=== PATIENT | male | born 1935 | race Caucasian/White ===

== ENCOUNTER 2017-12-31 20:38 | Inpatient (IN) | payer MEDICARE, BC ==
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
[2017-12-31] MEDS ORDERED: Albuterol/Ipratropium NEB.SOL* Albuterol 2.5 MG/Ipratropium 0.5 MG 3 ML INH ONE (21:15)
[2017-12-31] MEDS ORDERED: Albuterol 2.5 MG/3 ML NEB.SOL* (0.083%) INH ONE (21:16)
[2017-12-31 22:36] LABS: EGFR Non-African American 34.2 (>60)
[2017-12-31] MEDS ORDERED: Iodixanol* (CONTRAST) 320 MG/ML 100 ML SDV IV ONE (22:46)
[2017-12-31] MEDS ORDERED: NS 0.9% 1000 ML* 1,000 ML IV ONE (22:49)
[2017-12-31 23:29] LABS: ABS Neutrophils 5.2 10^3/ul (1.5-7.7); Hematocrit 33 % (42-52); Hemoglobin 11.4 g/dl (14.0-18.0); Mean Corpuscular HGB Conc 35 g/dl (31-36); Mean Corpuscular Hemoglobin 35 pg (27-31); Mean Corpuscular Volume 100 fL (80-94); Red Blood Count 3.31 10^6/ul (4.00-5.40); Red Cell Distribution Width 15 % (10.5-15); White Blood Count 7.8 10^3/ul (3.5-10.8)
[2017-12-31] MEDS ORDERED: Levofloxacin 750 MG IVPREMIX(* 750 MG/150 ML BAG IVPB ONE (23:30)
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
[2018-01-01 00:17] LABS: ABS Basophils 0 10^3/ul (0-0.2); ABS Eosinophils 0 10^3/ul (0-0.6); ABS Lymphocytes 1.8 10^3/ul (1.0-4.8); ABS Monocytes 0.8 10^3/ul (0-0.8); ABS Nucleated RBC 0 10^3/ul; Eosinophil % 0.3 % (0-6); Lymphocyte % 23.4 % (25-47); Mean Platelet Volume 7.8 um3 (7.4-10.4); Nucleated Red Blood Cells % 0.1; Platelet Count 94 10^3/ul (150-450)
[2018-01-01] MEDS ORDERED: Heparin VIAL(*) 5000 UNITS/ML VIAL (FIVE THOUSAND) IV PRN (00:34)
[2018-01-01] MEDS ORDERED: Acetaminophen TAB* 325 MG PO PRN (02:07)
[2018-01-01] MEDS: oxyCODONE TAB* 5 MG TAB PO PRN ×5 (02:40→22:04)
[2018-01-01] MEDS: Heparin DRIP 25,000 UNITS(*) 25,000 UNITS/500 ML BAG IV SCH (03:04)
[2018-01-01] MEDS: Levothyroxine TAB* 100 MCG TAB PO SCH (05:25)
[2018-01-01 06:16] LABS: Hematocrit 34 % (42-52); Hemoglobin 11.7 g/dl (14.0-18.0); Mean Corpuscular HGB Conc 34 g/dl (31-36); Mean Corpuscular Hemoglobin 35 pg (27-31); Mean Corpuscular Volume 102 fL (80-94); Mean Platelet Volume 8.6 um3 (7.4-10.4); Platelet Count 103 10^3/ul (150-450); Red Blood Count 3.34 10^6/ul (4.00-5.40); Red Cell Distribution Width 15 % (10.5-15); White Blood Count 8.3 10^3/ul (3.5-10.8)
[2018-01-01 06:42] LABS: ABS Basophils 0 10^3/ul (0-0.2); ABS Neutrophils 6.6 10^3/ul (1.5-7.7); Monocytes % 4 % (0-7)
--- NOTE | 2018-01-01 08:02 | RAD ---
Indication: RIGHT-sided chest pain, shortness of breath, cough. COPD. Comparison: December 31, 2017 CT. Technique: Upright AP 2135 hours Report: Elevated lung volumes and both diffuse moderate prominence of the interstitial markings and patchy rarefaction of the mid to upper lung zone interstitial markings. Bilateral apical pleural-parenchymal scarring. No focal pulmonary lesion, compelling alveolar consolidation, pleural effusion, pneumothorax. Upper normal heart size. Unremarkable central pulmonary vasculature and mediastinal contours. IMPRESSION: #. Stigmata of obstructive lung disease. No acute pulmonary or cardiac process evident. R0
[2018-01-01] MEDS: Mometasone/Formoter 200/5 MDI INH SCH ×2 (08:05→20:24)
[2018-01-01] MEDS: Tiotropium CAP.INH* CAP.INH/18 MCG (USE ORDER SET !) INH SCH (08:06)
--- NOTE | 2018-01-01 08:23 | RAD ---
Indication: Pulmonary embolus Duplex Doppler sonography of the deep venous system of both lower extremities was performed. The right proximal common femoral vein, proximal greater saphenous vein and proximal femoral vein are partially compressible. The left common femoral vein, proximal greater saphenous vein and proximal femoral vein are patent and compressible. Bilaterally the mid and distal femoral vein, popliteal vein, posterior tibial vein and peroneal veins are patent and compressible. IMPRESSION: There is partial compressibility of the right common femoral vein, proximal greater saphenous vein and proximal femoral vein suggestive of sequela from prior thrombus.
[2018-01-01] MEDS ORDERED: Spiriva Inhaler DEVICE* 1 EACH DEVICE INH ONE (09:00)
[2018-01-01] MEDS: Finasteride TAB* 5 MG PO SCH (09:55)
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
[2018-01-01] MEDS: Omeprazole CAP* 20 MG PO SCH (09:57)
[2018-01-01] MEDS: Atorvastatin* 20 MG TAB PO SCH (09:57)
[2018-01-01] MEDS: Allopurinol TAB* 100 MG PO SCH (09:57)
[2018-01-01] MEDS: Metoprolol Tartrate TAB* 25 MG PO SCH (09:58)
--- NOTE | 2018-01-01 13:03 | ECHO ---
Patient: NELY GRANT [facility] Rec#: [id number] : 1935 Date: 01/01/2018 Age: 82y Height: 170 cm / 66.9 in Weight: 86.2 kg / 190.0 lbs Sex: M BSA: 2 Room#: [facility] Admit Date#: 12/31/2017 Type: Inpatient Referring: Bettye Landin NP, Ines Reading: Solitario Andres MD Founder And Ceo: Jessica Meadows RN RDCS CC: Shantelle De Guzman MD Transthoracic Echocardiogram Indication: Pulmonary embolism BP: 140/56 HR: 83 Rhythm: NSR with PVCs Findings History: HTN, hypothyroidism, COPD, MILDRED, kidney cancer with right nephrectomy. Technical Comments: The study quality is fair. The study is technically limited due to patient body habitus. The study is technically limited due to the patient's history of COPD. Left Ventricle: The left ventricular chamber size is normal. Septal wall hypertrophy is observed. Global left ventricular wall motion and contractility are within normal limits. There is normal left ventricular systolic function. The estimated ejection fraction is 60-65%. There is no consistent Doppler evidence of clinically significant diastolic dysfunction. Left Atrium: The left atrial chamber size is normal. Right Ventricle: The right ventricle is slightly dilated. The right ventricular global systolic function is low normal. Right Atrium: The right atrium is slightly dilated. Aortic Valve: The aortic valve leaflets are mildly thickened. There is no evidence of aortic regurgitation. There is no evidence of aortic stenosis. Mitral Valve: The mitral valve leaflets are mildly thickened. There is no evidence of mitral regurgitation. There is no evidence of mitral stenosis. Tricuspid Valve: The tricuspid valve leaflets are normal. There is trace tricuspid regurgitation. Unable to estimate the right ventricular systolic pressure. There is no tricuspid stenosis. Pulmonic Valve: The pulmonic valve appears normal. There is no evidence of pulmonic regurgitation. There is no pulmonic stenosis. Pericardium: There is no significant pericardial effusion. A pericardial fat pad is visualized. Aorta: There is mild dilatation of the ascending aorta. The aortic arch is not well visualized. The aortic root is normal in size. Pulmonary Artery: The main pulmonary artery is not well visualized. Venous: The venous system is not well visualized. The inferior vena cava is not visualized. Summary: There was not any prior study for comparison. Conclusions Global left ventricular wall motion and contractility are within normal limits. There is normal left ventricular systolic function. The estimated ejection fraction is 60-65%. There is no evidence of aortic stenosis. There is no evidence of mitral regurgitation. There is trace tricuspid regurgitation. Unable to estimate the right ventricular systolic pressure. There is no significant pericardial effusion. Measurements Name Value Normal Range RVIDd (AP) 2D 3.6 cm (0.9 - 2.6) RVDdMajor (2D) 3.4 cm (2.2 - 4.4) RAd ISD 4CH 5.1 cm (3.4 - 4.9) RA (A4C)W 3.5 cm (2.9 - 4.6) IVSd (2D) 1.2 cm (0.6 - 1) LVPWd (2D) 1 cm (0.6 - 1) LVIDd (2D) 3.6 cm (3.6 - 5.4) Aortic Annulus 2.1 cm (1.4 - 2.6) Ao root diameter (2D) 3.2 cm (2.1 - 3.5) Ascending Ao 3.5 cm (2.1 - 3.4) LA dimension (AP) 2D 3.4 cm (2.3 - 3.8) LAd ISD 4CH 5.2 cm (2.9 - 5.3) LA ISD 4CH W 3.9 cm (2.5 - 4.5) Name Value Normal Range LA ESV BP (A/L) index 20 ml/m2 - Name Value Normal Range MV E-wave Vmax 0.49 m/sec - MV deceleration time 180 msec - MV A-wave Vmax 0.95 m/sec - MV E:A ratio 0.5 ratio - LV septal e' Vmax 0.07 m/sec - LV lateral e' Vmax 0.09 m/sec - LV E:e' septal ratio 7 ratio - LV E:e' lateral ratio 5.4 ratio - Name Value Normal Range AV Vmax 1.4 m/sec - AV VTI 24.3 cm - AV peak gradient 8 mmHg - AV mean gradient 5 mmHg - LVOT Vmax 1.2 m/sec - LVOT VTI 22.1 cm - LVOT peak gradient 6 mmHg - LVOT mean gradient 3 mmHg - Name Value Normal Range PV Vmax 0.85 m/sec -
[2018-01-01 16:59] LABS: Hematocrit 33 % (42-52); Hemoglobin 11.4 g/dl (14.0-18.0); Mean Corpuscular HGB Conc 34 g/dl (31-36); Mean Corpuscular Hemoglobin 34 pg (27-31); Mean Corpuscular Volume 101 fL (80-94); Red Blood Count 3.32 10^6/ul (4.00-5.40); Red Cell Distribution Width 15 % (10.5-15); White Blood Count 7.6 10^3/ul (3.5-10.8)
[2018-01-01] MEDS ORDERED: Warfarin TAB(*) 5 MG PO SCH (17:00)
[2018-01-01 17:11] LABS: EGFR Non-African American 44.7 (>60)
[2018-01-01 17:40] LABS: ABS Basophils 0 10^3/ul (0-0.2); ABS Eosinophils 0 10^3/ul (0-0.6); ABS Lymphocytes 0.9 10^3/ul (1.0-4.8); ABS Monocytes 0.7 10^3/ul (0-0.8); ABS Nucleated RBC 0 10^3/ul; Eosinophil % 0.1 % (0-6); Lymphocyte % 12.3 % (25-47); Mean Platelet Volume 7.7 um3 (7.4-10.4); Nucleated Red Blood Cells % 0; Platelet Count 96 10^3/ul (150-450)
--- NOTE | 2018-01-01 17:42 | PN ---
Subjective Date of Service: 01/01/18 Interval History: Feeling good after oxycodone. His son is here. He was having pain in the right mid-clavicular line with deep breaths. Thinks breathing is much better than it was yesterday but not back to normal. He has not walked around yet. No bleeding on the heparin drip. No nausea, vomiting, headaches. Objective Active Medications: Acetaminophen (Tylenol Tab*) 650 mg PO Q4H PRN PRN Reason: FEVER/PAIN Last Admin: 01/01/18 02:20 Dose: 650 mg Allopurinol (Zyloprim Tab*) 200 mg PO DAILY [facility] Last Admin: 01/01/18 09:57 Dose: 200 mg Atorvastatin Calcium (Lipitor*) 20 mg PO DAILY [facility] Last Admin: 01/01/18 09:57 Dose: 20 mg Finasteride (Proscar Tab*) 5 mg PO DAILY [facility] Last Admin: 01/01/18 09:55 Dose: 5 mg Heparin Sodium (Porcine) (Heparin Vial(*)) 0 units IV .FOR BOLUSES PRN PRN Reason: HEPARIN DRIP BOLUSES Last Admin: 01/01/18 03:03 Dose: 6,450 units Heparin Sodium/Dextrose (Heparin Drip 25,000 Units(*)) 25,000 units in 500 mls @ 0 mls/hr IV PER RATE [facility]; Protocol Last Admin: 01/01/18 03:04 Dose: 31 mls/hr Lactated Ringer's (Lactated Ringers 1000 Ml Bag*) 1,000 mls @ 100 mls/hr IV PER RATE [facility] Last Admin: 01/01/18 14:47 Dose: 100 mls/hr Levothyroxine Sodium (Synthroid Tab*) 100 mcg PO 0600 [facility] Last Admin: 01/01/18 05:25 Dose: 100 mcg Metoprolol Tartrate (Lopressor Tab*) 12.5 mg PO DAILY [facility] Last Admin: 01/01/18 09:58 Dose: 12.5 mg Mometasone Furoate/Formoterol Fumar (Dulera 200/5 Mdi*) 2 puff INH BID [facility] Last Admin: 01/01/18 08:05 Dose: 2 puff Omeprazole (Prilosec Cap*) 20 mg PO DAILY [facility] Last Admin: 01/01/18 09:57 Dose: Not Given Oxycodone HCl (Roxycodone Tab*) 5 mg PO Q4H PRN PRN Reason: PAIN - SEVERE Last Admin: 01/01/18 12:34 Dose: 5 mg Tiotropium Cactus (Spiriva Cap.Inh*) 1 cap INH DAILY [facility] Last Admin: 01/01/18 08:06 Dose: 1 cap Warfarin Sodium (Coumadin Tab(*)) 5 mg PO DAILY@1700 [facility]; Protocol Vital Signs - 8 hr 01/01/18 01/01/18 01/01/18 10:03 11:26 12:34 Temperature 98.4 F Pulse Rate 96 Respiratory 20 22 18 Rate Blood Pressure 125/77 (mmHg) O2 Sat by Pulse 95 Oximetry 01/01/18 14:27 Temperature Pulse Rate Respiratory 18 Rate Blood Pressure (mmHg) O2 Sat by Pulse Oximetry Oxygen Devices in Use Now: Nasal Cannula Appearance: alert, no distress Eyes: No Scleral Icterus Ears/Nose/Mouth/Throat: NL Teeth, Lips, Gums Neck: NL Appearance and Movements; NL JVP Respiratory: Symmetrical Chest Expansion and Respiratory Effort, Clear to Auscultation Cardiovascular: NL Sounds; No Murmurs; No JVD, RRR Abdominal: NL Sounds; No Tenderness; No Distention, - - obese, he does not think it is bigger than usual Lymphatic: No Cervical Adenopathy Extremities: No Edema Skin: No Rash or Ulcers Neurological: Alert and Oriented x 3 Result Diagrams: 01/01/18 16:43 01/01/18 16:43 Assess/Plan/Problems-Billing Assessment: 82 year old man with history of prostate cancer (being followed in [place], reportedly PSA was stable this spring), renal cell ca s/p nephrectomy ( reportedly in remission, also being followed at [place]), who travels in an most of the year who presented with shortness of breath and was found to have a PE. - Patient Problems (1) Pulmonary embolism Current Visit: Yes Status: Acute Code(s): I26.99 - OTHER PULMONARY EMBOLISM WITHOUT ACUTE COR PULMONALE SNOMED Code(s): 24948535 Comment: certainly may be related to immobilization from RV trips, but he is also out of date on age-appropriate cancer screening (overdue for a colonoscopy) , and has history of prostate ca and renal cell ca. it is reassuring that he has not had any melena, weight loss, night sweats, etc, but malignancy should remain on the differential. will get records from his oncologist to confirm that neither cancers are thought to be active will check a PSA tomorrow to compare to his PSA in the spring continue heparin drip and start warfarin for bridge I discussed anticoagulation with him and his son at length. He should be maintained on warfarin given his renal insufficiency and histoyr of nephrectomy. This will pose a challenge since he is on the road 7 months out of the year; will discuss options with case management. (2) History of prostate cancer Current Visit: Yes Status: Acute Code(s): Z85.46 - PERSONAL HISTORY OF MALIGNANT NEOPLASM OF PROSTATE SNOMED Code(s): 018799519 Comment: check psa tomorrow and get records (3) History of renal cell carcinoma Current Visit: Yes Status: Acute Code(s): Z85.528 - PERSONAL HISTORY OF OTHER MALIGNANT NEOPLASM OF KIDNEY SNOMED Code(s): 996129112 Comment: s/p nephrectomy reportedly in remission
[2018-01-02] MEDS: Levothyroxine TAB* 100 MCG TAB PO SCH (05:24)
[2018-01-02 06:46] LABS: ABS Basophils 0 10^3/ul (0-0.2); ABS Eosinophils 0 10^3/ul (0-0.6); ABS Monocytes 0.6 10^3/ul (0-0.8); ABS Nucleated RBC 0 10^3/ul; Eosinophil % 0.4 % (0-6); Hematocrit 29 % (42-52); Hemoglobin 10.1 g/dl (14.0-18.0); Lymphocyte % 15.5 % (25-47); Mean Corpuscular HGB Conc 35 g/dl (31-36); Mean Corpuscular Hemoglobin 34 pg (27-31); Mean Corpuscular Volume 99 fL (80-94); Mean Platelet Volume 7.2 um3 (7.4-10.4); Nucleated Red Blood Cells % 0; Platelet Count 85 10^3/ul (150-450); Red Blood Count 2.94 10^6/ul (4.00-5.40); Red Cell Distribution Width 15 % (10.5-15); White Blood Count 6.7 10^3/ul (3.5-10.8)
[2018-01-02 06:47] LABS: EGFR Non-African American 45.4 (>60)
[2018-01-02 06:57] LABS: INR 1.21 (0.77-1.02)
[2018-01-02] MEDS ORDERED: Polyethylene Glycol 3350* 17 GM PACKET PO PRN (07:52)
[2018-01-02] MEDS: Mometasone/Formoter 200/5 MDI INH SCH ×2 (08:22→20:21)
[2018-01-02] MEDS: Tiotropium CAP.INH* CAP.INH/18 MCG (USE ORDER SET !) INH SCH (08:22)
[2018-01-02] MEDS: Atorvastatin* 20 MG TAB PO SCH (09:10)
[2018-01-02] MEDS: Allopurinol TAB* 100 MG PO SCH (09:11)
[2018-01-02] MEDS: Omeprazole CAP* 20 MG PO SCH (09:14)
[2018-01-02] MEDS: Metoprolol Tartrate TAB* 25 MG PO SCH (09:17)
[2018-01-02] MEDS: oxyCODONE TAB* 5 MG TAB PO PRN (09:17)
[2018-01-02] MEDS: Finasteride TAB* 5 MG PO SCH (09:17)
[2018-01-02] MEDS ORDERED: oxyCODONE TAB* 5 MG TAB PO PRN (10:47)
--- NOTE | 2018-01-02 10:49 | PN ---
Subjective Date of Service: 01/02/18 Interval History: Feeling about the same today. He still feels short of breath with movements but had no overnight events. He still has pain when he takes a deep breath. He has walked to the commode but no further. Objective Active Medications: Acetaminophen (Tylenol Tab*) 650 mg PO Q4H PRN PRN Reason: FEVER/PAIN Last Admin: 01/01/18 02:20 Dose: 650 mg Allopurinol (Zyloprim Tab*) 200 mg PO DAILY [facility] Last Admin: 01/02/18 09:11 Dose: 200 mg Atorvastatin Calcium (Lipitor*) 20 mg PO DAILY [facility] Last Admin: 01/02/18 09:10 Dose: 20 mg Finasteride (Proscar Tab*) 5 mg PO DAILY [facility] Last Admin: 01/02/18 09:17 Dose: 5 mg Heparin Sodium (Porcine) (Heparin Vial(*)) 0 units IV .FOR BOLUSES PRN PRN Reason: HEPARIN DRIP BOLUSES Last Admin: 01/01/18 03:03 Dose: 6,450 units Heparin Sodium/Dextrose (Heparin Drip 25,000 Units(*)) 25,000 units in 500 mls @ 0 mls/hr IV PER RATE [facility]; Protocol Last Admin: 01/02/18 00:00 Dose: 26 mls/hr Lactated Ringer's (Lactated Ringers 1000 Ml Bag*) 1,000 mls @ 100 mls/hr IV PER RATE [facility] Last Admin: 01/02/18 01:09 Dose: 100 mls/hr Levothyroxine Sodium (Synthroid Tab*) 100 mcg PO 0600 [facility] Last Admin: 01/02/18 05:24 Dose: 100 mcg Metoprolol Tartrate (Lopressor Tab*) 12.5 mg PO DAILY [facility] Last Admin: 01/02/18 09:17 Dose: 12.5 mg Mometasone Furoate/Formoterol Fumar (Dulera 200/5 Mdi*) 2 puff INH BID [facility] Last Admin: 01/02/18 08:22 Dose: 2 puff Omeprazole (Prilosec Cap*) 20 mg PO DAILY [facility] Last Admin: 01/02/18 09:14 Dose: 20 mg Oxycodone HCl (Roxycodone Tab*) 5 mg PO Q4H PRN PRN Reason: PAIN - SEVERE Last Admin: 01/02/18 09:17 Dose: 5 mg Polyethylene Glycol/Electrolytes (Miralax*) 17 gm PO DAILY PRN PRN Reason: CONSTIPATION Last Admin: 01/02/18 09:08 Dose: 17 gm Tiotropium Saline (Spiriva Cap.Inh*) 1 cap INH DAILY [facility] Last Admin: 01/02/18 08:22 Dose: 1 cap Warfarin Sodium (Coumadin Tab(*)) 5 mg PO DAILY@1700 [facility]; Protocol Last Admin: 01/01/18 18:39 Dose: 5 mg Vital Signs - 8 hr 01/02/18 01/02/18 01/02/18 03:31 06:29 07:26 Temperature 98.7 F 97.7 F Pulse Rate 95 96 Respiratory 16 12 Rate Blood Pressure 140/67 133/67 (mmHg) O2 Sat by Pulse 97 97 99 Oximetry 01/02/18 01/02/18 08:24 09:17 Temperature Pulse Rate 115 Respiratory 18 18 Rate Blood Pressure (mmHg) O2 Sat by Pulse 94 Oximetry Oxygen Devices in Use Now: Nasal Cannula Appearance: alert, no distress, able to speak in full sentences Eyes: No Scleral Icterus Ears/Nose/Mouth/Throat: NL Teeth, Lips, Gums Neck: NL Appearance and Movements; NL JVP Respiratory: Symmetrical Chest Expansion and Respiratory Effort, - - few crackles right mid-lung Cardiovascular: NL Sounds; No Murmurs; No JVD, RRR Abdominal: NL Sounds; No Tenderness; No Distention, No Hepatosplenomegaly Lymphatic: No Cervical Adenopathy Extremities: No Edema Skin: No Rash or Ulcers Neurological: Alert and Oriented x 3 Result Diagrams: 01/02/18 06:06 01/02/18 06:06 Microbiology and Other Data: Microbiology 01/01/18 00:50 Aerobic Blood Culture - Preliminary Blood Venous No Growth Day 1 Anaerobic Blood Culture - Preliminary No Growth Day 1 12/31/17 23:42 Aerobic Blood Culture - Preliminary Blood Venous No Growth Day 1 Anaerobic Blood Culture - Preliminary No Growth Day 1 Assess/Plan/Problems-Billing Assessment: 82 year old man with history of prostate cancer (being followed in [place], reportedly PSA was stable this spring), renal cell ca s/p nephrectomy ( reportedly in remission, also being followed at [place]), who travels in an most of the year who presented with shortness of breath and was found to have a PE. - Patient Problems (1) Pulmonary embolism Current Visit: Yes Status: Acute Code(s): I26.99 - OTHER PULMONARY EMBOLISM WITHOUT ACUTE COR PULMONALE SNOMED Code(s): 38460745 Comment: certainly may be related to immobilization from RV trips, but he is also out of date on age-appropriate cancer screening (overdue for a colonoscopy) , and has history of prostate ca and renal cell ca. it is reassuring that he has not had any melena, weight loss, night sweats, etc, but malignancy should remain on the differential. also reassuring is a PSA of 2 today continue heparin drip. today is warfarin day 2. I have a call out to Dr. De Guzman about the challenge we will have of following INRs given his lifestyle on the road in his RV. (2) History of prostate cancer Current Visit: Yes Status: Acute Code(s): Z85.46 - PERSONAL HISTORY OF MALIGNANT NEOPLASM OF PROSTATE SNOMED Code(s): 196890750 Comment: reported to be in remission, which coincides with psa of 2 today (3) History of renal cell carcinoma Current Visit: Yes Status: Acute Code(s): Z85.528 - PERSONAL HISTORY OF OTHER MALIGNANT NEOPLASM OF KIDNEY SNOMED Code(s): 721497624 Comment: s/p nephrectomy reportedly in remission
--- NOTE | 2018-01-02 11:51 | PN ---
Hospitalist Progress Note Date of Service: 01/02/18 I calculated Mr. Zayas's creatinine clearance via cockroft gault, and it is 47 , which qualifies him for eliquis (or xarelto). I discussed this at length with him and his son Mario. As they shared with me yesterday, they are hesitant about the NOACs becuase they had a family member who had a poor outcome on one. 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 This is his livelihood, and I spoke with Dr. De Guzman about how we could monitor his INR on warfarin while he is traveling, and she suggested attempting a noac since INR monitoring will be challenging and potentially dangerous. 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
[2018-01-02] MEDS: Heparin DRIP 25,000 UNITS(*) 25,000 UNITS/500 ML BAG IV SCH ×2 (23:01)
[2018-01-03] MEDS: Levothyroxine TAB* 100 MCG TAB PO SCH (05:06)
[2018-01-03 06:27] LABS: ABS Basophils 0 10^3/ul (0-0.2); ABS Eosinophils 0 10^3/ul (0-0.6); ABS Monocytes 0.4 10^3/ul (0-0.8); ABS Neutrophils 3.9 10^3/ul (1.5-7.7); ABS Nucleated RBC 0 10^3/ul; Eosinophil % 0.7 % (0-6); Hematocrit 28 % (42-52); Hemoglobin 9.9 g/dl (14.0-18.0); Lymphocyte % 19.3 % (25-47); Mean Corpuscular HGB Conc 35 g/dl (31-36); Mean Corpuscular Hemoglobin 34 pg (27-31); Mean Corpuscular Volume 98 fL (80-94); Mean Platelet Volume 7.7 um3 (7.4-10.4); Nucleated Red Blood Cells % 0; Platelet Count 86 10^3/ul (150-450); Red Blood Count 2.88 10^6/ul (4.00-5.40); Red Cell Distribution Width 15 % (10.5-15); White Blood Count 5.4 10^3/ul (3.5-10.8)
[2018-01-03 06:34] LABS: INR 1.1 (0.77-1.02)
[2018-01-03 06:53] LABS: EGFR Non-African American 43.7 (>60)
[2018-01-03] MEDS: Mometasone/Formoter 200/5 MDI INH SCH ×2 (08:12→20:23)
[2018-01-03] MEDS: Tiotropium CAP.INH* CAP.INH/18 MCG (USE ORDER SET !) INH SCH (08:13)
[2018-01-03] MEDS: Atorvastatin* 20 MG TAB PO SCH (10:15)
[2018-01-03] MEDS: Omeprazole CAP* 20 MG PO SCH (10:15)
[2018-01-03] MEDS: Metoprolol Tartrate TAB* 25 MG PO SCH (10:16)
[2018-01-03] MEDS: Allopurinol TAB* 100 MG PO SCH (10:17)
[2018-01-03] MEDS: Finasteride TAB* 5 MG PO SCH (10:18)
[2018-01-03] MEDS ORDERED: Magnesium Hydroxide LIQ* 30 ML UDC PO PRN (11:23)
[2018-01-03] MEDS ORDERED: Docusate CAP* 100 MG PO PRN (11:23)
[2018-01-03] MEDS: Apixaban* 5 MG TAB PO SCH ×2 (12:11→22:37)
[2018-01-03] MEDS: Furosemide TAB* 20 MG PO SCH (12:11)
[2018-01-03] MEDS: Gabapentin CAP(*) 300 MG PO SCH ×2 (16:11→22:38)
[2018-01-03] MEDS ORDERED: Sodium Phosphate ADULT ENEMA* 118 ml bottle PR PRN (20:05)
[2018-01-04] MEDS: Levothyroxine TAB* 100 MCG TAB PO SCH (05:52)
[2018-01-04 06:23] LABS: ABS Basophils 0 10^3/ul (0-0.2); ABS Eosinophils 0.1 10^3/ul (0-0.6); ABS Lymphocytes 1.1 10^3/ul (1.0-4.8); ABS Monocytes 0.4 10^3/ul (0-0.8); ABS Nucleated RBC 0 10^3/ul; Eosinophil % 1.1 % (0-6); Hematocrit 28 % (42-52); Hemoglobin 9.7 g/dl (14.0-18.0); Lymphocyte % 24.1 % (25-47); Mean Corpuscular HGB Conc 35 g/dl (31-36); Mean Corpuscular Hemoglobin 34 pg (27-31); Mean Corpuscular Volume 99 fL (80-94); Mean Platelet Volume 7.4 um3 (7.4-10.4); Nucleated Red Blood Cells % 0; Platelet Count 98 10^3/ul (150-450); Red Blood Count 2.83 10^6/ul (4.00-5.40); Red Cell Distribution Width 14 % (10.5-15); White Blood Count 4.5 10^3/ul (3.5-10.8)
[2018-01-04] MEDS: Tiotropium CAP.INH* CAP.INH/18 MCG (USE ORDER SET !) INH SCH (07:37)
[2018-01-04] MEDS: Mometasone/Formoter 200/5 MDI INH SCH (07:38)
[2018-01-04] MEDS: Allopurinol TAB* 100 MG PO SCH (09:03)
[2018-01-04] MEDS: Gabapentin CAP(*) 300 MG PO SCH ×2 (09:03→13:08)
[2018-01-04] MEDS: Metoprolol Tartrate TAB* 25 MG PO SCH (09:04)
[2018-01-04] MEDS: Finasteride TAB* 5 MG PO SCH (09:04)
[2018-01-04] MEDS: Omeprazole CAP* 20 MG PO SCH (09:05)
[2018-01-04] MEDS: Furosemide TAB* 20 MG PO SCH (09:05)
[2018-01-04] MEDS: Atorvastatin* 20 MG TAB PO SCH (09:05)
[2018-01-04] MEDS: Apixaban* 5 MG TAB PO SCH (09:05)
[2018-01-04 11:36] VITALS: BP 134/74
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
== END 2018-01-04 16:28 | disposition home or self-care (01) | DRG 175 ==
LOC: ED 20:38 → MEDTELE 23:55 → OBSVTOIN 01-01 12:00
PROVIDERS: ADMIT Internal Medicine; ATTEND Internal Medicine
PROC: 5A09357 Assistance with Respiratory Ventilation, Less than 24 Consecutive Hours, Continuous Positive Airway Pressure (ICD-10-PCS; principal; 2018-01-01)
DX: I26.99 Other pulmonary embolism without acute cor pulmonale (principal); J96.01 Acute respiratory failure with hypoxia; N17.9 Acute kidney failure, unspecified; J94.2 Hemothorax; D69.6 Thrombocytopenia, unspecified; E03.9 Hypothyroidism, unspecified; J44.9 Chronic obstructive pulmonary disease, unspecified; K21.9 Gastro-esophageal reflux disease without esophagitis; K58.9 Irritable bowel syndrome, unspecified; F32.9 Major depressive disorder, single episode, unspecified; J43.9 Emphysema, unspecified; M19.90 Unspecified osteoarthritis, unspecified site; I45.10 Unspecified right bundle-branch block; D64.9 Anemia, unspecified; Z66 Do not resuscitate; I12.9 Hypertensive chronic kidney disease with stage 1 through stage 4 chronic kidney disease, or unspecified chronic kidney disease; N18.9 Chronic kidney disease, unspecified; G47.33 Obstructive sleep apnea (adult) (pediatric); I07.1 Rheumatic tricuspid insufficiency; Z88.0 Allergy status to penicillin; Z90.5 Acquired absence of kidney; Z85.46 Personal history of malignant neoplasm of prostate; Z99.81 Dependence on supplemental oxygen; Z98.42 Cataract extraction status, left eye; Z79.01 Long term (current) use of anticoagulants; Z98.41 Cataract extraction status, right eye; Z80.1 Family history of malignant neoplasm of trachea, bronchus and lung; Z87.891 Personal history of nicotine dependence; Z85.53 Personal history of malignant neoplasm of renal pelvis; Z82.49 Family history of ischemic heart disease and other diseases of the circulatory system
CPT/HCPCS: 36415; 71045; 71275; 80048; 80053; 82550; 82553; 83605; 83880; 84153; 84484; 85025; 85060; 85379; 85610; 85730; 86140; 87040; 93005; 93306; 93970; 94640; 94660; 94762; 99284; A9270-GY; G8978-GP-CH; G8978-GP-CI; G8979-GP-CH; G8980-GP-CH; J1644; Q9967

== ENCOUNTER → 2018-10-20 05:25 | Emergency (ER) | payer MEDICARE, BC ==
--- NOTE | 2018-10-20 06:21 | ED ---
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 He does have a history of diverticulosis, but has never been diagnosed with diverticulitis. Denies any fevers, sweats, chills. Symptoms began approximately 2 days ago and has remained intermittent until this morning which is now constant. He describes the pain as a dull ache. He does have some urinary symptoms, but a history of prostate cancer and BPH, so typically has a weak stream at baseline and often cannot tell if has sxs of UTI. States his L kidney is currently at 30%. Unknown recent BUN/Cr. States he was getting ready to leave on his RV this morning and decided to come here and get "checked out." Worsening sxs on palpation, but resolves with nothing. Has not taken any medication for relief. Last BM last night and was small and hard in consistency. He states he has had some hard stools recently, but continues to go. Denies feeling of urinary obstruction. Denies back pain. Endorses intermittent chest discomfort since his catheterization, but no sharp pains. No SOB. Pt continues to eat and drink OK. Current medications include Eliquis, Lipitor, Proscar, Lasix, Neurontin, Lopressor. Social hx includes non-smoker, lives alone and travels in RV. Surg hx includes R nephrectomy, appendectomy, catheterization. - History of Current Complaint Chief Complaint: EDAbdPain Stated Complaint: GROIN PAIN PER PT Time Seen by Provider: 10/20/18 06:03 Hx Obtained From: Patient Onset/Duration: Sudden Onset Timing: Intermittent Severity Initially: Moderate Severity Currently: Moderate Pain Intensity: 5 Pain Scale Used: 0-10 Numeric Radiates: No Character: Cramping Aggravating Factor(s): Nothing Alleviating Factor(s): Nothing Associated Signs And Symptoms: Positive: Urinary Symptoms. Negative: Diaphoresis, Fever, Cough, Chest Pain, Constipation, Blood in Stool, Vomiting, Diarrhea - Risk Factors Testicular Torsion: Negative Cardiac Risk Factors: Negative - Allergies/Home Medications Allergies/Adverse Reactions: Allergies Allergy/AdvReac Type Severity Reaction Status Date / Time ampicillin AdvReac Diarrhea Verified 10/20/18 05:32 PMH/Surg Hx/FS Hx/Imm Hx Previously Healthy: Yes Endocrine/Hematology History: Reports: Hx Thyroid Disease - HYPOTHYROID Denies: Hx Diabetes, Hx Sickle Cell Disease Cardiovascular History: Reports: Hx Hypertension - ON MEDICATION WELL CONTROLLED Denies: Hx Pacemaker/ICD, Other Cardiovascular Problems/Disorders Respiratory History: Reports: Hx Chronic Obstructive Pulmonary Disease (COPD), Hx Sleep Apnea GI History: Reports: Hx Gastroesophageal Reflux Disease - ON MEDICATION WELL CONTROLLED, Hx Irritable Bowel History: Reports: Other Problems/Disorders - RIGHT KIDNEY REMOVED ONE 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 PROSTATE CA JUST WATCHING Hx Chemotherapy: No - Surgical History Surgery Procedure, Year, and Place: RIGHT KIDNEY - 2011 [facility]. 1994 - ARTHROSCOPIC R KNEE. 1994 - RT SHOULDER - [facility] Hx Anesthesia Reactions: No - Immunization History Hx Pertussis Vaccination: No Immunizations Up to Date: Yes Infectious Disease History: Yes Infectious Disease History: Reports: Hx Tuberculosis - 1954 Denies: Traveled Outside the in Last 30 Days - Family History Known Family History: Positive: Cardiac Disease - Social History Occupation: Unemployed Lives: With Family Alcohol Use: Daily Hx Substance Use: No Substance Use Type: Reports: None Smoking Status (MU): Former Smoker Review of Systems Negative: Fever, Chills, Fatigue, Skin Diaphoresis Negative: Palpitations, Chest Pain Negative: Shortness Of Breath, Cough Positive: Abdominal Pain - LLQ Genitourinary: Negative Positive: no symptoms reported, see HPI Negative: Arthralgia, Myalgia Neurological: Negative All Other Systems Reviewed And Are Negative: Yes Physical Exam Triage Information Reviewed: Yes Vital Signs On Initial Exam: Initial Vitals Temp Pulse Resp BP Pulse Ox 97.8 F 72 16 160/75 99 10/20/18 05:25 10/20/18 05:25 10/20/18 05:25 10/20/18 05:25 10/20/18 05:25 Vital Signs Reviewed: Yes Appearance: Positive: Well-Appearing, Well-Nourished Skin: Positive: Warm, Skin Color Reflects Adequate Perfusion Head/Face: Positive: Normal Head/Face Inspection Eyes: Positive: EOMI, Conjunctiva Clear Neck: Positive: Supple, No Lymphadenopathy Respiratory/Lung Sounds: Positive: Clear to Auscultation, Breath Sounds Present Cardiovascular: Positive: RRR, Pulses are Symmetrical in both Upper and Lower Extremities Abdomen Description: Positive: No Organomegaly, Soft, Other: - LUQ tenderness on light palpation. Negative: CVA Tenderness (R), CVA Tenderness (L), Distended , Guarding Musculoskeletal: Positive: Normal, Strength/ROM Intact Neurological: Positive: Sensory/Motor Intact, Alert, Oriented to Person Place, Time, Speech Normal Psychiatric: Positive: Affect/Mood Appropriate AVPU Assessment: Alert Diagnostics - Vital Signs Vital Signs Temp Pulse Resp BP Pulse Ox 10/20/18 05:50 74 134/71 97 10/20/18 05:49 70 97 10/20/18 05:25 97.8 F 72 16 160/75 99 - Laboratory Result Diagrams: 10/20/18 06:23 10/20/18 06:23 Lab Statement: Any lab studies that have been ordered have been reviewed, and results considered in the medical decision making process. Abdominal Pain Male Course/Dx - Course Course Of Treatment: During the course of treatment, the patient's evaluated for LLQ pain which started yesterday afternoon, has been intermittent, not worse or better with positioning or food. On physical examination, patient appears well, nondiaphoretic and nontoxic. Lungs CTA, RRR. No tenderness to palpation to the LUQ, RLQ, RUQ, however tenderness to the LUQ on light palpation. Negative Parr's. Patient status post appendectomy. No epigastric tenderness. Labs obtained which are unremarkable except for creatinine of 1.76 which is slightly elevated from his last visit. Denies any back pain or urinary symptoms. UA obtained and is negative. CT abdomen/pelvis without IV or oral contrast obtained. CT abdomen/pelvis: CT findings are consistent with acute sigmoid diverticulitis. No WBC. Patient states he would like to go home and voices no concern upon discharge. He will be placed on ciprofloxacin and metronidazole. He will follow-up with his PCP in the next few days. He declines pain medication and nausea medication. He is ambulating well upon discharge. Patient remains afebrile and other vital signs stable during his stay in the ED. - Diagnoses Differential Diagnosis/HQI/PQRI: Bowel Obstruction, Constipation, Ureteral Stone Provider Diagnoses: Diverticulitis Discharge - Sign-Out/Discharge Documenting (check all that apply): Patient Departure Patient Received Moderate/Deep Sedation with Procedure: No - Discharge Plan Condition: Stable Disposition: HOME Prescriptions: Ciprofloxacin TAB* [Cipro 500 MG TAB*] 500 mg PO BID #14 tab metroNIDAZOLE [Flagyl 500 MG TAB] 500 mg PO TID #21 tab Patient Education Materials: Diverticulitis (ED), Diverticulitis Diet (ED) Referrals: Shantelle De Guzman MD [Primary Care Provider] - Additional Instructions: Please follow up with Dr. De Guzman this week for another check up to assure resolution of symptoms If you develop any worsening symptoms, please return to the ED - Billing Disposition and Condition Condition: STABLE Disposition: Home
[2018-10-20 06:31] LABS: ABS Eosinophils 0.1 10^3/ul (0-0.6); ABS Lymphocytes 1.4 10^3/ul (1.0-4.8); ABS Monocytes 0.6 10^3/ul (0-0.8); Eosinophil % 0.8 %; Hematocrit 31 % (42-52); Hemoglobin 10.9 g/dL (14.0-18.0); Lymphocyte % 20.1 %; Mean Corpuscular HGB Conc 35 g/dL (31-36); Mean Corpuscular Hemoglobin 34 pg (27-31); Mean Corpuscular Volume 96 fL (80-94); Mean Platelet Volume 7.4 fL (7.4-10.4); Platelet Count 102 10^3/uL (150-450); Red Blood Count 3.26 10^6 /uL (4.18-5.48); Red Cell Distribution Width 15 % (10-15); White Blood Count 7.1 10^3/uL (3.5-10.8)
[2018-10-20 06:36] LABS: INR 1.39 (0.82-1.09)
[2018-10-20 06:38] LABS: Urine Appearance Clear; Urine Bilirubin Negative (Negative); Urine Blood Negative (Negative); Urine Color Straw; Urine Glucose Negative (Negative); Urine Ketones Negative (Negative); Urine Nitrite Negative (Negative); Urine Protein Negative (Negative); Urine Specific Gravity 1.004 (1.010-1.030); Urine Urobilinogen Negative (Negative)
[2018-10-20 06:49] LABS: Albumin 3.6 g/dL (3.2-5.2); Albumin/Globulin Ratio 1.2 (1-3); BUN/Creatinine Ratio 15.3 (8-20); C Reactive Protein 38.39 mg/L (<8.01); Calcium 9.2 mg/dL (8.6-10.3); EGFR Non-African American 37.2 (>60); Globulin 2.9 g/dL (2-4); Magnesium 2.2 mg/dL (1.9-2.7); Potassium 4.1 mmol/L (3.5-5.0); Total Bilirubin 0.7 mg/dL (0.2-1.0); Total Protein 6.5 g/dL (6.4-8.9)
[2018-10-20 06:50] LABS: Troponin I 0.01 ng/mL (<0.04)
[2018-10-20 08:34] VITALS: BP 136/78
== END | disposition home or self-care (01) ==
LOC: ED 05:25
DX: K57.32 Diverticulitis of large intestine without perforation or abscess without bleeding (principal); I45.10 Unspecified right bundle-branch block; I10 Essential (primary) hypertension; J44.9 Chronic obstructive pulmonary disease, unspecified; K21.9 Gastro-esophageal reflux disease without esophagitis; N40.1 Benign prostatic hyperplasia with lower urinary tract symptoms; C61 Malignant neoplasm of prostate; R39.12 Poor urinary stream; Z90.5 Acquired absence of kidney; Z90.89 Acquired absence of other organs; Z88.0 Allergy status to penicillin; Z87.891 Personal history of nicotine dependence
CPT/HCPCS: 36415; 74176; 80053; 81003; 82150; 83605; 83690; 83735; 84484; 85025; 85610; 86140; 93005; 99283